=== PATIENT | female | born 1975 | race African-American/Black ===

== ENCOUNTER 2021-02-16 17:13 | Outpatient (CLI) | payer BC ==
[2021-02-17 00:49] LABS: SARS-CoV-2 PCR by NAA Not Detected (NotDetected)
== END 2021-02-16 17:14 | disposition home or self-care (01) ==
LOC: LABBT 17:13
PROVIDERS: ATTEND Specialist
DX: Z01.812 Encounter for preprocedural laboratory examination (principal); J38.3 Other diseases of vocal cords; J38.1 Polyp of vocal cord and larynx; Z20.822 Contact with and (suspected) exposure to COVID-19
CPT/HCPCS: 85014; 87635; U0003; U0005

== ENCOUNTER 2021-02-19 07:46 | Day surgery (SDC) | payer BC ==
[2021-02-18 13:20] VITALS: BMI 39.8
[2021-02-19] MEDS ORDERED: Midazolam HCl 2 mg/2 ml Vial ONE (10:33)
[2021-02-19] MEDS ORDERED: Fentanyl 100 MCG/2 ML VIAL ONE ×3 (10:33→12:18)
[2021-02-19] MEDS ORDERED: Propofol 500 MG/50 ML VIAL ONE (10:34)
[2021-02-19] MEDS ORDERED: EPINEPHrine 1 MG/ML AMP ONE (10:42)
[2021-02-19] MEDS ORDERED: Succinylcholine 200 MG/10 ml SYRINGE FS ONE (11:04)
[2021-02-19] MEDS ORDERED: Lidocaine 1% PF 5 ML VIAL ONE (11:04)
[2021-02-19] MEDS ORDERED: Glycopyrrolate 0.2 MG/ML 5 ML SYRINGE ONE (11:04)
[2021-02-19] MEDS ORDERED: PROPOFOL 200 MG/20 ML VIAL ONE (11:04)
[2021-02-19] MEDS ORDERED: Rocuronium Bromide 10 MG/ML (10ML VIAL) ONE (11:04)
[2021-02-19] MEDS ORDERED: Dexamethasone 20 MG/5 ML VIAL ONE (11:04)
[2021-02-19] MEDS ORDERED: Ondansetron PF 4 MG/2 ML Vial ONE (11:04)
[2021-02-19] MEDS ORDERED: Hydrocodone-Acetamin 15 ML UDCUP ONE (13:08)
== END 2021-02-19 13:31 | disposition home or self-care (01) ==
LOC: SDC 07:46
PROVIDERS: ATTEND Specialist
PROC: 0CBT8ZZ Excision of Right Vocal Cord, Via Natural or Artificial Opening Endoscopic (ICD-10-PCS; principal; 2021-02-19)
PROC: 0CBV8ZZ Excision of Left Vocal Cord, Via Natural or Artificial Opening Endoscopic (ICD-10-PCS; principal; 2021-02-19)
DX: J38.2 Nodules of vocal cords (principal); Z79.899 Other long term (current) drug therapy
CPT/HCPCS: J0171; J2250; J2704; J3010